=== PATIENT | male | born 1970 | race African-American/Black ===

== ENCOUNTER 2021-01-16 16:14 | Emergency (ER) | payer OTHER ==
[~2021-01-16] VITALS: Ht 177.8 cm; Wt 90.9 kg
[2021-01-16] MEDS ORDERED: HYDR25TA2 PO (16:19)
[2021-01-16] MEDS ORDERED: BACL10TA PO (16:19)
[2021-01-16 17:58] LABS: BASOPHILS % (AUTO) 1.1 % (0.0-2.0); EOSINOPHILS % (AUTO) 2.7 % (1.0-6.0); HEMATOCRIT 41.8 % (41-53); HEMOGLOBIN 13.7 g/dL (13.5-17.5); LYMPHOCYTES # (AUTO) 1.7 K/uL (1.0-4.8); LYMPHOCYTES % (AUTO) 29.3 % (22.0-44.0); MEAN CORPUSCULAR HEMOGLOBIN 29.9 pg (26.0-34.0); MEAN CORPUSCULAR HGB CONC 32.8 G/dL (31.0-37.0); MEAN CORPUSCULAR VOLUME 91 fL (80-100); MONOCYTES # (AUTO) 0.4 K/uL (0.1-1.0); MONOCYTES % (AUTO) 7.9 % (2.0-9.0); NEUTROPHILS # (AUTO) 3.3 K/uL (1.8-7.7); PLATELET COUNT (AUTO) 210 K/uL (150-450); RED BLOOD CELL COUNT(AUTO) 4.59 MIL/uL (4.50-5.90); RED CELL DISTRIBUTION WIDTH 13.7 % (11.5-14.5)
[2021-01-16 18:05] LABS: CREATININE 1.32 mg/dL (0.60-1.30); POTASSIUM 4.6 mmol/L (3.5-5.1)
[2021-01-16 18:22] VITALS: BP 139/82
== END 2021-01-16 18:52 | disposition home or self-care (01) ==
LOC: EMS 16:17
DX: R07.89 Other chest pain (principal); R06.02 Shortness of breath; I10 Essential (primary) hypertension
CPT/HCPCS: 71045; 80048; 84484; 85025; 93005; 99285; 36415-L1; 36415-TC

== ENCOUNTER 2021-12-17 19:14 | Emergency (ER) | payer OTHER ==
[~2021-12-17] VITALS: Ht 175.3 cm; Wt 97.7 kg
[~2021-12-17 19:14] MED LIST: BACL10TA PO; HYDR25TA2 PO
[2021-12-17] MEDS ORDERED: CLOT15CR29 TP (21:44)
[2021-12-17 22:01] VITALS: BP 136/83
== END 2021-12-17 22:17 | disposition home or self-care (01) ==
LOC: EMS 19:14
DX: S90.822A Blister (nonthermal), left foot, initial encounter (principal); S90.821A Blister (nonthermal), right foot, initial encounter; B35.3 Tinea pedis; I10 Essential (primary) hypertension; Z87.39 Personal history of other diseases of the musculoskeletal system and connective tissue; X58.XXXA Exposure to other specified factors, initial encounter; Y93.89 Activity, other specified; Y92.89 Other specified places as the place of occurrence of the external cause; Y99.8 Other external cause status
CPT/HCPCS: 82962; 99282

== ENCOUNTER 2022-07-02 12:40 | Emergency (ER) | payer OTHER ==
[~2022-07-02] VITALS: Ht 175.3 cm; Wt 92.3 kg
[~2022-07-02 12:40] MED LIST changes: +CLOT15CR29 TP
[2022-07-02] MEDS ORDERED: RIVA2.5T3 PO (12:56)
[2022-07-02 14:49] LABS: BASOPHILS % (AUTO) 1.1 % (0.0-2.0); EOSINOPHILS % (AUTO) 3.8 % (1.0-6.0); HEMATOCRIT 41.5 % (41-53); HEMOGLOBIN 13.3 g/dL (13.5-17.5); LYMPHOCYTES # (AUTO) 1.5 K/uL (1.0-4.8); LYMPHOCYTES % (AUTO) 32.5 % (22.0-44.0); MEAN CORPUSCULAR HEMOGLOBIN 29.4 pg (26.0-34.0); MEAN CORPUSCULAR HGB CONC 32.1 G/dL (31.0-37.0); MEAN CORPUSCULAR VOLUME 92 fL (80-100); MONOCYTES # (AUTO) 0.4 K/uL (0.1-1.0); MONOCYTES % (AUTO) 8.2 % (2.0-9.0); NEUTROPHILS # (AUTO) 2.6 K/uL (1.8-7.7); NEUTROPHILS % (AUTO) 54.4 % (40.0-70.0); PLATELET COUNT (AUTO) 217 K/uL (150-450); RED BLOOD CELL COUNT(AUTO) 4.54 MIL/uL (4.50-5.90); RED CELL DISTRIBUTION WIDTH 13.8 % (11.5-14.5)
[2022-07-02 14:59] LABS: ANION GAP 4 mmol/L (8-16); CALCIUM, TOTAL 8.3 mg/dL (8.8-10.5); CARBON DIOXIDE 32 mmol/L (22-29); CHLORIDE 104 mmol/L (98-107); CREATININE 1.33 mg/dL (0.60-1.30); GLOMERULAR FILTR. RATE CALC > 60 mL/min (>60); GLUCOSE,RANDOM 86 mg/dL (70-110); POTASSIUM 3.9 mmol/L (3.5-5.1); SODIUM SERUM 140 mmol/L (136-145); UREA NITROGEN, BLOOD 18 mg/dL (7-18)
[2022-07-02] MEDS ORDERED: SODIUM CHLORIDE 0.9% 100 ML ONE (18:13)
[2022-07-02] MEDS ORDERED: IOHEXOL 350 MG/ML 100 ML VIAL ONE (18:13)
[2022-07-02 18:23] VITALS: BP 123/80
== END 2022-07-02 19:12 | disposition home or self-care (01) ==
LOC: EMS 13:41
DX: R07.89 Other chest pain (principal); I10 Essential (primary) hypertension; I82.402 Acute embolism and thrombosis of unspecified deep veins of left lower extremity; G89.29 Other chronic pain
CPT/HCPCS: 99285; 71275; 80048; 84484; 85025; 36415; 93005; Q9967; J7050

== ENCOUNTER 2024-04-11 05:50 | Inpatient (IN) | payer OTHER ==
[~2024-04-11] VITALS: Ht 175.3 cm; Wt 85.3 kg
[~2024-04-11 05:50] MED LIST changes: -BACL10TA PO; -CLOT15CR29 TP; -HYDR25TA2 PO; +RIVA2.5T3 PO
[2024-04-11 07:26] LABS: BASOPHILS % (AUTO) 0.1 % (0.0-2.0); EOSINOPHILS % (AUTO) 0.2 % (1.0-6.0); HEMATOCRIT 44.1 % (41-53); HEMOGLOBIN 14.8 g/dL (13.5-17.5); LYMPHOCYTES # (AUTO) 0.5 K/uL (1.0-4.8); LYMPHOCYTES % (AUTO) 4.1 % (22.0-44.0); MEAN CORPUSCULAR HEMOGLOBIN 31.1 pg (26.0-34.0); MEAN CORPUSCULAR HGB CONC 33.5 G/dL (31.0-37.0); MEAN CORPUSCULAR VOLUME 93 fL (80-100); MONOCYTES # (AUTO) 0.5 K/uL (0.1-1.0); MONOCYTES % (AUTO) 3.9 % (2.0-9.0); NEUTROPHILS # (AUTO) 11.8 K/uL (1.8-7.7); PLATELET COUNT (AUTO) 182 K/uL (150-450); RED BLOOD CELL COUNT(AUTO) 4.75 MIL/uL (4.50-5.90); RED CELL DISTRIBUTION WIDTH 13.7 % (11.5-14.5); WHITE BLOOD COUNT (AUTO) 12.9 K/uL (4.5-11.0)
[2024-04-11 07:30] LABS: NEUTROPHILS % (AUTO) 91.7 % (40.0-70.0)
[2024-04-11 07:37] LABS: ANION GAP 8 mmol/L (8-16); CALCIUM, TOTAL 9.1 mg/dL (8.8-10.5); CARBON DIOXIDE 29 mmol/L (22-29); CHLORIDE 103 mmol/L (98-107); CREATININE 1.24 mg/dL (0.60-1.30); GLOMERULAR FILTR. RATE CALC > 60 mL/min (>60); GLUCOSE,RANDOM 121 mg/dL (70-110); POTASSIUM 4.5 mmol/L (3.5-5.1); SODIUM SERUM 140 mmol/L (136-145); UREA NITROGEN, BLOOD 24 mg/dL (7-18)
[2024-04-11 07:43] LABS: ALANINE AMINOTRANSFERASE 29 U/L (12-78); ALBUMIN 4.1 g/dL (3.4-5.0); ALKALINE PHOSPHATASE 61 U/L (46-116); ASPARTATE AMINOTRANSFERASE 22 U/L (15-37); BILIRUBIN,TOTAL 0.6 mg/dL (0.1-1.0); LIPASE 136 U/L (16-77); TOTAL PROTEIN, SERUM 8.1 g/dL (6.4-8.2)
[2024-04-11 08:11] LABS: COVID AG,FIA SOURCE NASAL SWAB
[2024-04-11 08:33] LABS: SARS-COV2 (COVID) ANTIGEN,FIA Negative (Negative)
[2024-04-11] MEDS: SODIUM CHLORIDE 0.9% 1,000 ML IV ONE (08:35)
[2024-04-11] MEDS: PANTOPRAZOLE SODIUM 40 MG/VIAL IVP ONE (08:36)
[2024-04-11] MEDS: KETOROLAC TROMETHAMINE 30 MG/ML VIAL IVP ONE (08:36)
[2024-04-11 10:15] VITALS: BP 100/63; PULSE 77; RESP 18; TEMP 98.3; O2SAT 99
[2024-04-11 10:47] LABS: APPEARANCE,URINE CLEAR (CLEAR); BILIRUBIN,URINE NEGATIVE (NEGATIVE); COLOR,URINE LIGHT YELLOW (YELLOW); GLUCOSE, URINE (UA) NEGATIVE (NEGATIVE); KETONES,URINE NEGATIVE (NEGATIVE); LEUKOCYTE ESTERASE ,URINE NEGATIVE (NEGATIVE); NITRATE,URINE NEGATIVE (NEGATIVE); OCCULT BLOOD,URINE MODERATE (NEGATIVE); PROTEIN,URINE TRACE mg/dL (NEGATIVE); SPECIFIC GRAVITIY, URINE 1.027 (1.003-1.030); UROBILINOGEN,URINE <=1.0 mg/dL (<=1.0)
[2024-04-11 11:38] LABS: WBC,URINE None Seen /HPF (0-5)
[2024-04-11 11:39] LABS: BACTERIA,URINE None Seen /HPF (None Seen); URIC ACID CRYSTALS,URINE Few /LPF (None Seen)
[2024-04-11 12:00] VITALS: BP 130/62; PULSE 82; RESP 17; TEMP 98.6; O2SAT 96
[2024-04-11] MEDS ORDERED: MORPHINE SULFATE 4 MG/ML SYRINGE IVP PRN (15:30)
[2024-04-11] MEDS ORDERED: ZOLPIDEM TARTRATE 5 MG TABLET PO PRN (15:30)
[2024-04-11] MEDS ORDERED: ONDANSETRON HCL 4 MG/2 ML VIAL IVP PRN (15:30)
[2024-04-11] MEDS ORDERED: OxyCODONE HCL/ACETAMINOPHEN 5-325 MG TABLET PO PRN (15:30)
[2024-04-11] MEDS ORDERED: ALBUTEROL SULFATE 2.5 MG/0.5 ML NEB SOLUTION NEB PRN (15:30)
[2024-04-11] MEDS ORDERED: BISACODYL 10 MG RECTAL RECTAL SUPPOSITORY PR PRN (15:30)
[2024-04-11] MEDS ORDERED: IPRATROPIUM BROMIDE 0.5 MG/2.5 ML NEB SOLUTION NEB PRN (15:30)
[2024-04-11] MEDS ORDERED: ACETAMINOPHEN 325 MG TABLET PO PRN (15:30)
[2024-04-11] MEDS ORDERED: MAGNESIUM HYDROXIDE SUSPENSION 30 ML UDCUP PO PRN (15:30)
[2024-04-11 16:00] VITALS: BP 117/62; PULSE 87; RESP 18; TEMP 97.4; O2SAT 98
[2024-04-11] MEDS: DEXTROSE 5%-0.45% SODIUM CHL 1,000 ML IV SCH (16:00)
[2024-04-11] MEDS: HEPARIN SODIUM,PORCINE 5,000 UNITS/ML VIAL SQ SCH (16:00)
[2024-04-11 19:15] VITALS: BP 100/53; PULSE 74; RESP 19; TEMP 99; O2SAT 95
[2024-04-11] MEDS: DOCUSATE SODIUM 100 MG CAPSULE PO SCH (20:54)
[2024-04-12] VITALS (7 sets, daily range): BP systolic 98–108; BP diastolic 52–59; PULSE 59–77; RESP 18–19; TEMP 98.1–98.6; O2SAT 96–100
[2024-04-12] MEDS ORDERED: MORPHINE SULFATE 2 MG/ML SYRINGE IVP PRN (01:06)
[2024-04-12 06:29] LABS: BASOPHILS % (AUTO) 0.3 % (0.0-2.0); EOSINOPHILS % (AUTO) 4.4 % (1.0-6.0); HEMATOCRIT 35.3 % (41-53); LYMPHOCYTES # (AUTO) 0.7 K/uL (1.0-4.8); LYMPHOCYTES % (AUTO) 14.5 % (22.0-44.0); MEAN CORPUSCULAR HEMOGLOBIN 31.5 pg (26.0-34.0); MEAN CORPUSCULAR VOLUME 93 fL (80-100); MONOCYTES # (AUTO) 0.5 K/uL (0.1-1.0); MONOCYTES % (AUTO) 10.1 % (2.0-9.0); NEUTROPHILS # (AUTO) 3.5 K/uL (1.8-7.7); NEUTROPHILS % (AUTO) 70.7 % (40.0-70.0); PLATELET COUNT (AUTO) 142 K/uL (150-450); RED CELL DISTRIBUTION WIDTH 13.4 % (11.5-14.5); WHITE BLOOD COUNT (AUTO) 4.9 K/uL (4.5-11.0)
[2024-04-12 06:49] LABS: ALANINE AMINOTRANSFERASE 21 U/L (12-78); ALBUMIN 2.7 g/dL (3.4-5.0); ALKALINE PHOSPHATASE 41 U/L (46-116); AMYLASE 294 U/L (25-115); ANION GAP 5 mmol/L (8-16); ASPARTATE AMINOTRANSFERASE 17 U/L (15-37); BILIRUBIN,TOTAL 0.5 mg/dL (0.1-1.0); CALCIUM, TOTAL 7.6 mg/dL (8.8-10.5); CARBON DIOXIDE 27 mmol/L (22-29); CHLORIDE 105 mmol/L (98-107); CREATININE 1.08 mg/dL (0.60-1.30); GLOMERULAR FILTR. RATE CALC > 60 mL/min (>60); GLUCOSE,RANDOM 102 mg/dL (70-110); POTASSIUM 3.6 mmol/L (3.5-5.1); SODIUM SERUM 137 mmol/L (136-145); TOTAL PROTEIN, SERUM 5.8 g/dL (6.4-8.2); UREA NITROGEN, BLOOD 15 mg/dL (7-18)
[2024-04-12 07:25] LABS: LIPASE 364 U/L (16-77)
[2024-04-12] MEDS: PANTOPRAZOLE SODIUM 40 MG/VIAL IVP SCH (08:22)
[2024-04-12 22:06] LABS: HEPATITIS C AB (EIA) Non Reactive (Non Reactive)
[2024-04-13 04:09] VITALS: BP 109/52; PULSE 70; RESP 18; TEMP 98.6; O2SAT 96
[2024-04-13 06:08] LABS: EOSINOPHILS % (AUTO) 6.7 % (1.0-6.0); HEMATOCRIT 34.9 % (41-53); LYMPHOCYTES # (AUTO) 1.2 K/uL (1.0-4.8); LYMPHOCYTES % (AUTO) 37.6 % (22.0-44.0); MEAN CORPUSCULAR HEMOGLOBIN 31.7 pg (26.0-34.0); MEAN CORPUSCULAR HGB CONC 34.3 G/dL (31.0-37.0); MEAN CORPUSCULAR VOLUME 93 fL (80-100); MONOCYTES # (AUTO) 0.5 K/uL (0.1-1.0); MONOCYTES % (AUTO) 16.4 % (2.0-9.0); NEUTROPHILS # (AUTO) 1.3 K/uL (1.8-7.7); NEUTROPHILS % (AUTO) 38.3 % (40.0-70.0); PLATELET COUNT (AUTO) 146 K/uL (150-450); RED BLOOD CELL COUNT(AUTO) 3.77 MIL/uL (4.50-5.90); RED CELL DISTRIBUTION WIDTH 13.5 % (11.5-14.5)
[2024-04-13 06:27] LABS: ALANINE AMINOTRANSFERASE 20 U/L (12-78); ALBUMIN 2.6 g/dL (3.4-5.0); ALKALINE PHOSPHATASE 41 U/L (46-116); AMYLASE 109 U/L (25-115); ANION GAP 4 mmol/L (8-16); ASPARTATE AMINOTRANSFERASE 14 U/L (15-37); BILIRUBIN,TOTAL 0.2 mg/dL (0.1-1.0); CALCIUM, TOTAL 7.9 mg/dL (8.8-10.5); CARBON DIOXIDE 29 mmol/L (22-29); CHLORIDE 107 mmol/L (98-107); CREATININE 1.08 mg/dL (0.60-1.30); GLOMERULAR FILTR. RATE CALC > 60 mL/min (>60); GLUCOSE,RANDOM 105 mg/dL (70-110); LIPASE 86 U/L (16-77); POTASSIUM 3.7 mmol/L (3.5-5.1); SODIUM SERUM 140 mmol/L (136-145); TOTAL PROTEIN, SERUM 5.6 g/dL (6.4-8.2); UREA NITROGEN, BLOOD 10 mg/dL (7-18)
[2024-04-13 06:51] LABS: WHITE BLOOD COUNT (AUTO) 3.3 K/uL (4.5-11.0)
[2024-04-13 08:16] VITALS: BP 99/51; PULSE 55; RESP 17; TEMP 98.6; O2SAT 99
== END 2024-04-13 15:00 | disposition home or self-care (01) | DRG 282 ==
LOC: EMS 05:53 → EDH 08:52 → 5S 10:20 → 6N 04-12 11:01
PROVIDERS: ADMIT Hospitalist; ATTEND Hospitalist
DX: K85.90 Acute pancreatitis without necrosis or infection, unspecified (principal); E86.0 Dehydration; Z20.822 Contact with and (suspected) exposure to COVID-19; I10 Essential (primary) hypertension; M54.9 Dorsalgia, unspecified
CPT/HCPCS: 71045; 80048; 80053; 80076; 81001; 82150; 83690; 85025; 86803; 86850; 86900; 86901; 87340; 93005; 99285; C9113; J1644; J1885; J7030; 36415-L1; 36415-TC; J2471

== ENCOUNTER → 2024-09-01 | Emergency (ER) | payer OTHER ==
[~2024-09-01] VITALS: Ht 175.3 cm; Wt 81.8 kg
[~2024-09-01] MED LIST changes: +ANUSHCS PR; +POLY119P3 PO; -RIVA2.5T3 PO
[2024-09-01 16:50] LABS: BASOPHILS % (AUTO) 0.7 % (0.0-2.0); EOSINOPHILS % (AUTO) 1.7 % (1.0-6.0); HEMATOCRIT 42.3 % (41-53); HEMOGLOBIN 13.8 g/dL (13.5-17.5); LYMPHOCYTES # (AUTO) 1.7 K/uL (1.0-4.8); LYMPHOCYTES % (AUTO) 32.9 % (22.0-44.0); MEAN CORPUSCULAR HGB CONC 32.7 G/dL (31.0-37.0); MEAN CORPUSCULAR VOLUME 92 fL (80-100); MONOCYTES # (AUTO) 0.5 K/uL (0.1-1.0); MONOCYTES % (AUTO) 10.4 % (2.0-9.0); NEUTROPHILS # (AUTO) 2.7 K/uL (1.8-7.7); NEUTROPHILS % (AUTO) 54.3 % (40.0-70.0); PLATELET COUNT (AUTO) 192 K/uL (150-450); RED CELL DISTRIBUTION WIDTH 13.6 % (11.5-14.5)
[2024-09-01 16:58] LABS: ANION GAP 9 mmol/L (8-16); CALCIUM, TOTAL 9.3 mg/dL (8.8-10.5); CARBON DIOXIDE 27 mmol/L (22-29); CHLORIDE 101 mmol/L (98-107); CREATININE 1.24 mg/dL (0.60-1.30); GLOMERULAR FILTR. RATE CALC > 60 mL/min (>60); GLUCOSE,RANDOM 91 mg/dL (70-110); POTASSIUM 4.2 mmol/L (3.5-5.1); SODIUM SERUM 137 mmol/L (136-145); UREA NITROGEN, BLOOD 19 mg/dL (7-18)
[2024-09-01 17:08] LABS: LIPASE 279 U/L (16-77); TROPONIN I-HIGH SENSITIVITY 15 ng/L (<76)
[2024-09-01 18:12] VITALS: BP 136/76; PULSE 80; RESP 18; TEMP 97.9; O2SAT 99
== END | disposition still patient (30) ==
LOC: EMS 14:53
DX: K92.1 Melena (principal); R74.8 Abnormal levels of other serum enzymes; Z86.718 Personal history of other venous thrombosis and embolism
CPT/HCPCS: 80048; 82271; 83690; 84484; 85025; 99283